=== PATIENT | female | born 1955 | race Asian ===

== ENCOUNTER 2017-06-03 14:39 | Emergency (ER) | payer MEDICAID ==
[~2017-06-03] VITALS: Ht 165.1 cm; Wt 68.0 kg
[2017-06-03 15:24] VITALS: BP 164/89
== END 2017-06-03 15:58 | disposition home or self-care (01) ==
LOC: ED 14:39
DX: S00.81XA Abrasion of other part of head, initial encounter (principal); I10 Essential (primary) hypertension; W20.8XXA Other cause of strike by thrown, projected or falling object, initial encounter; Y93.89 Activity, other specified; Y99.8 Other external cause status; Y92.512 Supermarket, store or market as the place of occurrence of the external cause